=== PATIENT | female | born 1955 | race Caucasian/White ===

== ENCOUNTER 2025-01-22 19:04 | Emergency (ER) | payer OTHER, MEDICAID ==
[2025-01-22] MEDS ORDERED: Sulfameth/Trimethoprim DS 800-160mg TAB ONE (19:25)
[2025-01-22] MEDS ORDERED: Amoxicillin/Potassium Clav 875 MG TAB ONE (19:25)
== END 2025-01-22 19:45 | disposition home or self-care (01) ==
LOC: MADERS 19:04
DX: L02.413 Cutaneous abscess of right upper limb (principal); L03.113 Cellulitis of right upper limb; I48.91 Unspecified atrial fibrillation; I10 Essential (primary) hypertension; L66.12 Frontal fibrosing alopecia; Z79.82 Long term (current) use of aspirin
CPT/HCPCS: 99282